=== PATIENT | female | born 1965 | race Caucasian/White ===

== ENCOUNTER → 2022-04-11 09:20 | Outpatient (BNVA) | payer BC, SELFPAY | PROVIDERS: Visit Provider Nurse Practitioner Family | DX: I10 Essential (primary) hypertension (principal); E11.9 Type 2 diabetes mellitus without complications; Z76.89 Persons encountering health services in other specified circumstances; Z68.41 Body mass index [BMI] 40.0-44.9, adult | CPT/HCPCS: 80053; 80061; 82043; 83036; 84443; 85025 ==

== ENCOUNTER → 2022-05-16 15:47 | Outpatient (BNVA) | payer BC, SELFPAY | PROVIDERS: Visit Provider Nurse Practitioner Family | DX: Z12.4 Encounter for screening for malignant neoplasm of cervix (principal); Z01.419 Encounter for gynecological examination (general) (routine) without abnormal findings | CPT/HCPCS: 88175 ==

== ENCOUNTER 2022-06-14 09:35 | Outpatient (CLI) | payer BC, SELFPAY ==
--- NOTE | 2022-06-14 09:48 | MM_ITS ---
WS: [id number] BILATERAL SCREENING DIGITAL TOMOSYNTHESIS MAMMOGRAM WITH CAD HISTORY: SCREENING COMPARISON: 09/13/2020, 02/01/2019 Bilateral CC and MLO views with tomosynthesis and synthetic mammography submitted. Computer aided det ection analyzed. Breast composition: There are scattered areas of fibroglandular density. No suspicious masses, microc alcifications or architectural distortion. Benign calcification lateral RIGHT breast. MM/[place] [id number] IMPRESSION: BI-RADS: 2-Benign FOLLOW UP: 1 Year Follow-up
== END 2022-06-14 09:36 | disposition home or self-care (01) ==
PROVIDERS: PCP Nurse Practitioner Family; Visit Provider Nurse Practitioner Family
DX: Z12.31 Encounter for screening mammogram for malignant neoplasm of breast (principal)
CPT/HCPCS: 77063; 77067

== ENCOUNTER → 2022-07-09 15:25 | Outpatient (BNVA) | payer BC, SELFPAY | PROVIDERS: PCP Nurse Practitioner Family; Visit Provider Nurse Practitioner Family | DX: R30.9 Painful micturition, unspecified (principal); N95.0 Postmenopausal bleeding | CPT/HCPCS: 81003; 83001; 84144; 84443; 87086 ==

== ENCOUNTER 2022-08-21 15:47 | Outpatient (CLI) | payer BC, SELFPAY ==
--- NOTE | 2022-08-21 16:00 | US_ITS ---
WS: [id number] Transabdominal and transvaginal PELVIC ULTRASOUND HISTORY: N95.0 - Postmenopausal bleeding COMPARISON: None available. Uterus: 8.5 cm x 5.4 cm x 4.0 cm. The uterus is top normal size. Very heterogeneous appearance of the uterus. The uterus is slightly lobulated with shadowing and heterogeneity throughout the myometrium. Towards the fundus of the uterus is a soft tissue mass with shadowing and increased vascularity ward uring 3.3 x 3.8 x 3.0 cm. Most consistent with a leiomyoma. Additional fibroids are likely present. Endometrium: 0.6 cm. Endometrium is top normal size. Endometrium is only partially visualized. Areas of shadowing obscuring the endometrium secondary to fibroids. No increased vascularity. Right ovary: Not visualized. No adnexal mass. Left ovary: 3.6 cm x 4.2 cm x 2.1 cm; complex cyst associated with the LEFT ovary. Cyst measures 3.0 x 2.7 x 1.6 cm. There are a few low-level echoes within the cyst. No free fluid. US/US pelvic complete* [id number] IMPRESSION: 1. Heterogeneous uterus with a leiomyoma towards the RIGHT fundus measuring 3. 3 x 3.8 x 3.0 cm. Dense area of shadowing from the fibroid and also additionall y throughout the remaining myometrium. Favor there are probably additional fibr oids within the heterogeneous myometrium. 2. Only a portion of the endometrium is visualized due to shadowing from the m yometrium. Endometrium measures 6 mm which is top normal for postmenopausal. Ev aluation by hysteroscopy may be necessary for complete evaluation of the endome trium. 3. LEFT ovarian cyst (O-RADS -2) likely benign.
== END 2022-08-21 15:48 | disposition home or self-care (01) ==
LOC: RAD 15:49
PROVIDERS: PCP Nurse Practitioner Family; Visit Provider Nurse Practitioner Family
DX: N95.0 Postmenopausal bleeding (principal); N83.202 Unspecified ovarian cyst, left side
CPT/HCPCS: 76856

== ENCOUNTER → 2023-06-18 08:30 | Outpatient (BNVA) | payer BC, SELFPAY | PROVIDERS: PCP Nurse Practitioner Family; Visit Provider Nurse Practitioner Family | DX: I10 Essential (primary) hypertension (principal); E11.9 Type 2 diabetes mellitus without complications | CPT/HCPCS: 80053; 80061; 83036; 85025 ==

== ENCOUNTER → 2023-09-16 09:08 | Outpatient (BNVA) | payer BC, SELFPAY | PROVIDERS: PCP Nurse Practitioner Family; Visit Provider Nurse Practitioner Family | DX: E11.9 Type 2 diabetes mellitus without complications (principal) | CPT/HCPCS: 83036 ==

== ENCOUNTER → 2024-01-20 10:09 | Outpatient (BNVA) | payer BC, SELFPAY | PROVIDERS: PCP Nurse Practitioner Family; Visit Provider Nurse Practitioner Family | DX: E11.9 Type 2 diabetes mellitus without complications (principal); I10 Essential (primary) hypertension; Z82.49 Family history of ischemic heart disease and other diseases of the circulatory system | CPT/HCPCS: 80053; 80061; 83036 ==

== ENCOUNTER 2024-10-26 11:35 | Outpatient (CLI) | payer BC, SELFPAY ==
--- NOTE | 2024-10-26 11:40 | MM_ITS ---
WS: [id number] BILATERAL 3D TOMOSYNTHESIS DIGITAL SCREENING MAMMOGRAPHY WITH CAD CLINICAL INFORMATION: SCREENING HISTORY: Screening mammogram. No current complaints. COMPARISON: 2021 TECHNIQUE: Bilateral CC and MLO views. FINDINGS: Scattered fibroglandular densities bilaterally. No suspicious focal mass, asymmetry, calcifications, or architectural distortion. No evidence of malignancy. MM/MM scr BI tomosynthesis [id number] IMPRESSION: DENSITY: There are scattered areas of fibroglandular density. BI-RADS: 1 - Negative. FOLLOW UP: 1 Year Follow-up Recommend return to annual screening mammography.
== END 2024-10-26 11:36 | disposition home or self-care (01) ==
LOC: MOBLMAM 11:39
PROVIDERS: PCP Nurse Practitioner Family; Visit Provider Nurse Practitioner Family
DX: Z12.31 Encounter for screening mammogram for malignant neoplasm of breast (principal); R92.323 Mammographic fibroglandular density, bilateral breasts
CPT/HCPCS: 77063; 77067